=== PATIENT | female | born 1945 | race Caucasian/White ===

== ENCOUNTER 2020-01-19 13:11 | Emergency (ER) | payer MEDICARE ==
[~2020-01-19] VITALS: Ht 157.5 cm; Wt 81.6 kg
[2020-01-19 13:11] VITALS: BP_SYST 167
--- NOTE | 2020-01-19 13:11 | NUR ---
Placed in room 2. Placed on conflict resolution professional, blood pressure machine and pulse oximeter. To gown for exam. Side rails up.
--- NOTE | 2020-01-19 13:12 | NUR ---
Patient is awake, alert, and oriented x1. Patient was brought in by EMS for seizure. Patient is nonverbal at this time, visually tracks.
--- NOTE | 2020-01-19 13:25 | NUR ---
Call from son Dean at phone number [phone]. States that his sister Corrina holds power of endbander, and her phone number is [phone].
[2020-01-19] MEDS ORDERED: hydrALAZINE HCL 20 MG/ML VIAL IVP ONE (13:30)
--- NOTE | 2020-01-19 13:50 | NUR ---
# 22 gauge angiocath placed to RFA. Use of asceptic technique. Opsite placed over site. Blood return noted. Blood for lab drawn from site. Flushed with 10 cc of normal saline. No evidence of infiltration noted. Patient tolerated well.
[2020-01-19 14:01] LABS: BASOPHILS # (AUTO) 0.1 K/uL (0.0-0.2); BASOPHILS % (AUTO) 1.2 % (0.0-2.0); EOSINOPHILS # (AUTO) 0.3 K/uL (0.0-0.4); EOSINOPHILS % (AUTO) 4.4 % (0.0-4.0); HEMATOCRIT 47.2 % (36-48); HEMOGLOBIN 15.6 g/dL (12.0-16.0); LYMPHOCYTES # (AUTO) 2.6 K/uL (1.0-5.5); LYMPHOCYTES % (AUTO) 43.7 % (20.5-51.5); MEAN CORPUSCULAR HEMOGLOBIN 31 pg (27-31); MEAN CORPUSCULAR HGB CONC 33 % (32-36); MEAN CORPUSCULAR VOLUME 92 fL (79.0-98.0); MONOCYTES # (AUTO) 0.5 K/uL (0.0-1.0); MONOCYTES % (AUTO) 8.6 % (1.7-9.3); NEUTROPHILS # (AUTO) 2.5 K/uL (1.8-7.7); NEUTROPHILS % (AUTO) 42.1 % (40.0-70.0); PLATELET COUNT (AUTO) 137 K/uL (130-430); RED BLOOD CELL COUNT(AUTO) 5.11 MIL/uL (4.2-6.2); RED CELL DISTRIBUTION WIDTH 14.1 % (9.0-15.0)
[2020-01-19 14:13] LABS: ANION GAP 11 (5-15); CALCIUM 8.9 mg/dL (8.4-11.0); CHLORIDE 105 mmol/L (98-107); CREATININE 0.72 mg/dL (0.55-1.30); GLUCOSE 156 mg/dL (70-99); POTASSIUM 3.4 mmol/L (3.5-5.1); SODIUM SERUM 141 mmol/L (136-145); UREA NITROGEN, BLOOD 13 mg/dL (8-21)
[2020-01-19 14:19] LABS: ALANINE AMINOTRANSFERASE 49 U/L (12-78); ASPARTATE AMINOTRANSFERASE 47 U/L (10-37); TOTAL BILIRUBIN 0.6 mg/dL (0.0-1.0)
--- NOTE | 2020-01-19 14:28 | NUR ---
EKG DONE AND GIVEN TO
--- NOTE | 2020-01-19 14:30 | NUR ---
UA COLLECTED VIS STRAIGHT CATH.
--- NOTE | 2020-01-19 15:20 | NUR ---
REPORT GIVEN TO DONTAE SHERMAN
[2020-01-19] MEDS ORDERED: cefTRIAXone 1 GM IVPB PREMIX 50 ML IV ONE (15:30)
[2020-01-19] MEDS ORDERED: NACL 0.9% 1,000 ML IV ONE (15:30)
--- NOTE | 2020-01-19 15:39 | NUR ---
Medicated per MD orders. IVF infusing with no s/s of infiltration at this time. Will cont to monitor
[2020-01-19 15:55] LABS: BILIRUBIN,URINE NEGATIVE (NEGATIVE); BLOOD, URINE 1+ (NEGATIVE); COLOR,URINE YELLOW (YELLOW); GLUCOSE,URINE NEGATIVE (NEGATIVE); KETONES,URINE NEGATIVE (NEGATIVE); LEUKOCYTE ESTERASE ,URINE 2+ (NEGATIVE); NITRITE, URINE NEGATIVE (NEGATIVE); PH,URINE 7.5 (5.0-8.0); PROTEIN URINE 1+ (NEGATIVE); UROBILINOGEN,URINE 0.2 (0.2-1.0)
[2020-01-19 16:04] LABS: CLARITY/URINE SLIGHTLY HAZY (CLEAR)
[2020-01-19 16:29] LABS: BACTERIA,URINE FEW /HPF (None Seen); WBC,URINE 20-50 /HPF (0-3)
[2020-01-19 16:30] LABS: MUCUS,URINE 1+ /LPF (None Seen); URIC ACID CRYSTALS,URINE 0-10 /HPF (None Seen)
[2020-01-19] MEDS ORDERED: NACL 0.9% 2,000 ML IV ONE (16:45)
[2020-01-19] MEDS ORDERED: levETIRAcetam 1,000 MG IV BAG 100 ML IV ONE (17:00)
[2020-01-19] MEDS ORDERED: LACTULOSE 20 GM/30 ML UDC GT ONE (17:30)
--- NOTE | 2020-01-19 17:32 | NUR ---
DAUGHTER AND SON INFORMED THAT PATIENT WILL NO LONGER BE TRANSFERRED TO [place]. WILL ARRANGE [place] [facility]SPORT AND FAMILY INFORMED TO FOLLOW UP WITH PCP. FAMILY IS IN AGREEANCE
--- NOTE | 2020-01-19 18:01 | NUR ---
PATIENT VOICED NO COMPLAINTS AT THIS TIME. WILL CONTINUE TO MONITOR.
[2020-01-19 19:32] VITALS: BP_SYST 150
--- NOTE | 2020-01-19 19:32 | NUR ---
Patient AND SON given written and verbal discharge instructions and verbalizes understanding. ER MD AYERS discussed with patient the results and treatment provided. Patient in stable condition. ID arm band removed. IV catheter removed intact and dressing applied, no active bleeding. Rx of LANTUS, AMOXICILLIN AND KEPRRA given. Patient educated on pain management and to follow up with PMD. Pain Scale 0/10 Opportunity for questions provided and answered. Medication side effect fact sheet provided.
--- NOTE | 2020-01-21 11:35 | NUR ---
RECEIVED +[facility] SCREEN OF [facility] FROM LABORATORY, DISCUSSED CASE WITH DR HUMPHREY AND NO FURTHER ACTIONS NEEDED PER DR HUMPHREY.
== END 2020-01-19 19:32 | disposition home or self-care (01) ==
LOC: EDBD 13:11 → SED 13:11
DX: N39.0 Urinary tract infection, site not specified (principal); R56.9 Unspecified convulsions; R41.82 Altered mental status, unspecified; I10 Essential (primary) hypertension; Z86.79 Personal history of other diseases of the circulatory system
CPT/HCPCS: 36415; 70450; 71045; 74176; 80053; 81000; 83605; 84484; 85025; 86710; 87040; 87081; 87086; 93005; 96361; 96365; 96375; 99285; J0696; J1953; J7030